=== PATIENT | female | born 1935 | race Caucasian/White ===

== ENCOUNTER 2017-11-28 13:25 | Emergency (ER) | payer MEDICARE, OTHER ==
[~2017-11-28] VITALS: Ht 154.9 cm; Wt 52.0 kg
[~2017-11-28 13:25] MED LIST: ASPI-611 PO; ATI0.5T PO; ATOR10TA PO; DOCU-28 PO; ERGO500041 PO; FLUT16SP2 BOTHNARES; GABA100C PO; LACT1CAP26 PO; MIRA50TA PO; MIRT15TA8 PO; Miscellaneous PO; PANT40TA4 PO; PRAV10TA39 PO; STORE MEDs IN PHARMACY MC; TRAM50TA2 PO
[2017-11-28 13:54] VITALS: BP 142/62
[2017-11-28 14:37] LABS: BASOPHILS % (AUTO) 0.5 % (0-1); EOSINOPHILS # (AUTO) 0.1 X10'3 (0-0.9); EOSINOPHILS % (AUTO) 1.2 % (0-6); HEMATOCRIT 42.4 % (35.0-45.0); HEMOGLOBIN 14.4 g/dl (12.0-16.0); LYMPHOCYTES # (AUTO) 1.4 X10'3 (1.1-4.8); LYMPHOCYTES % (AUTO) 19.5 % (21-51); MEAN CORPUSCULAR HEMOGLOBIN 29.9 PG (27.0-31.0); MEAN CORPUSCULAR HGB CONC 33.8 % (33.0-36.5); MEAN CORPUSCULAR VOLUME 88.3 FL (78-98); MEAN PLATELET VOLUME 8.3 FL (7.4-10.4); MONOCYTES # (AUTO) 0.4 X10'3 (0-0.9); MONOCYTES % (AUTO) 5.9 % (2-12); NEUTROPHILS # (AUTO) 5.3 X10'3 (1.8-7.7); NEUTROPHILS % (AUTO) 72.9 % (42-75); PLATELET COUNT 231 X10'3 (140-440); RED BLOOD COUNT 4.81 X10'6 (4.20-5.60); RED CELL DISTRIBUTION WIDTH 13.6 % (11.5-14.5); WHITE BLOOD COUNT 7.3 X10'3 (4.5-11.0)
[2017-11-28 14:47] LABS: PROTHROMBIN TIME 10.1 SECONDS (9.0-12.0)
[2017-11-28 14:53] LABS: ALANINE AMINOTRANSFERASE 19 U/L (12-78); ALBUMIN/GLOBULIN RATIO 1.2 (1.1-1.5); ALKALINE PHOSPHATASE 101 IU/L (46-116); ANION GAP 9 (8-16); ASPARTATE AMINO TRANSFERASE 16 U/L (10-37); BILIRUBIN,TOTAL 0.4 MG/DL (0.1-1.0); BLOOD UREA NITROGEN 18 MG/DL (7-18); CALCIUM 9.1 MG/DL (8.5-10.1); CHLORIDE 105 MMOL/L (99-107); CREATININE 1.06 MG/DL (0.40-0.90); GLUCOSE 130 MG/DL (70-104); POTASSIUM 3.9 MMOL/L (3.5-5.1); SODIUM 143 MMOL/L (135-145); TOTAL CARBON DIOXIDE 28.7 MMOL/L (24-32); TOTAL PROTEIN 7.3 G/DL (6.4-8.2); eGFR 50 ML/MIN
[2017-11-28 15:26] LABS: CLARITY,URINE CLOUDY (Clear); COLOR,URINE YELLOW (Yellow); GLUCOSE, URINE NEGATIVE (Neg); KETONES,URINE NEGATIVE (Neg); LEUKOCYTE ESTERASE ,URINE SMALL (Neg); NITRITES, URINE NEGATIVE (Neg); OCCULT BLOOD,URINE MODERATE (Neg); PH,URINE 5.5 (4.8-8.0); PROTEIN,URINE NEGATIVE (Neg); UROBILINOGEN,URINE 0.2 E.U/dL (0.2-1.0)
[2017-11-28 15:28] LABS: UA COLLECTION TYPE CLN CATCH MIDSTREAM
[2017-11-28 15:34] LABS: BACTERIA,URINE 3+ /HPF (Neg); RENAL CELLS, URINE FEW /HPF; SQUAMOUS EPITHELIAL CELL,UR FEW /LPF (FEW); TRANSITIONAL EPI CELLS,URINE FEW /HPF
[2017-11-28 15:35] LABS: RBC,URINE 0-2 /HPF (0-2); WBC CLUMPS,URINE FEW /HPF (NEGATIVE)
[2017-11-28 15:37] LABS: URINE AMPHETAMINE SCREEN NEGATIVE (Neg); URINE BARBITUATE SCREEN NEGATIVE (Neg); URINE BENZODIAZEPINES SCREEN NEGATIVE (Neg); URINE CANNABINOID SCREEN NEGATIVE (Neg); URINE COCAINE SCREEN NEGATIVE (Neg); URINE METHADONE SCREEN NEGATIVE (Neg); URINE OPIATE SCREEN NEGATIVE (Neg); URINE PHENCYCLIDINE SCREEN NEGATIVE (Neg)
== END 2017-11-28 15:58 | disposition home or self-care (01) ==
LOC: ER 13:26
DX: F03.90 Unspecified dementia, unspecified severity, without behavioral disturbance, psychotic disturbance, mood disturbance, and anxiety (principal); F41.9 Anxiety disorder, unspecified; F32.9 Major depressive disorder, single episode, unspecified; Z88.8 Allergy status to other drugs, medicaments and biological substances; Z79.82 Long term (current) use of aspirin; Z79.899 Other long term (current) drug therapy
CPT/HCPCS: 36415; 80053; 80305; 81001; 84443; 85025; 85610; 87077; 87088; 87186; 99284

== ENCOUNTER 2017-12-13 08:38 | Emergency (ER) | payer MEDICARE, OTHER ==
[~2017-12-13] VITALS: Ht 157.5 cm; Wt 50.0 kg
[2017-12-13 08:53] VITALS: BP 160/85
[2017-12-13 10:21] LABS: CLARITY,URINE Clear (Clear); COLOR,URINE Yellow (Yellow); GLUCOSE, URINE Negative (Neg); KETONES,URINE Negative (Neg); LEUKOCYTE ESTERASE ,URINE Negative (Neg); NITRITES, URINE Negative (Neg); OCCULT BLOOD,URINE Negative (Neg); PH,URINE 7.5 (4.8-8.0); PROTEIN,URINE Negative (Neg)
[2017-12-13 10:25] LABS: UA COLLECTION TYPE CLN CATCH MIDSTREAM
[2017-12-13 10:29] LABS: URINE AMPHETAMINE SCREEN NEGATIVE (Neg); URINE BARBITUATE SCREEN NEGATIVE (Neg); URINE BENZODIAZEPINES SCREEN NEGATIVE (Neg); URINE CANNABINOID SCREEN NEGATIVE (Neg); URINE COCAINE SCREEN NEGATIVE (Neg); URINE METHADONE SCREEN NEGATIVE (Neg); URINE OPIATE SCREEN NEGATIVE (Neg); URINE PHENCYCLIDINE SCREEN NEGATIVE (Neg)
[2017-12-13 10:48] LABS: BASOPHILS % (AUTO) 0.3 % (0-1); EOSINOPHILS % (AUTO) 0.7 % (0-6); HEMOGLOBIN 14.3 g/dl (12.0-16.0); LYMPHOCYTES # (AUTO) 1.2 X10'3 (1.1-4.8); LYMPHOCYTES % (AUTO) 18.2 % (21-51); MEAN CORPUSCULAR HEMOGLOBIN 30.5 PG (27.0-31.0); MEAN CORPUSCULAR HGB CONC 34.8 % (33.0-36.5); MEAN CORPUSCULAR VOLUME 87.5 FL (78-98); MEAN PLATELET VOLUME 7.5 FL (7.4-10.4); MONOCYTES # (AUTO) 0.3 X10'3 (0-0.9); MONOCYTES % (AUTO) 4.4 % (2-12); NEUTROPHILS # (AUTO) 5.1 X10'3 (1.8-7.7); NEUTROPHILS % (AUTO) 76.4 % (42-75); PLATELET COUNT 213 X10'3 (140-440); RED BLOOD COUNT 4.68 X10'6 (4.20-5.60); WHITE BLOOD COUNT 6.7 X10'3 (4.5-11.0)
[2017-12-13 11:11] LABS: ALANINE AMINOTRANSFERASE 20 U/L (12-78); ALBUMIN/GLOBULIN RATIO 1.3 (1.1-1.5); ALKALINE PHOSPHATASE 88 IU/L (46-116); ANION GAP 9 (8-16); ASPARTATE AMINO TRANSFERASE 13 U/L (10-37); BILIRUBIN,TOTAL 0.4 MG/DL (0.1-1.0); BLOOD UREA NITROGEN 12 MG/DL (7-18); BUN/CREATININE RATIO 13.3 (6.6-38.0); CALCIUM 9.3 MG/DL (8.5-10.1); CHLORIDE 106 MMOL/L (99-107); GLUCOSE 106 MG/DL (70-104); POTASSIUM 3.8 MMOL/L (3.5-5.1); SODIUM 144 MMOL/L (135-145); TOTAL CARBON DIOXIDE 28.6 MMOL/L (24-32); TOTAL PROTEIN 7.1 G/DL (6.4-8.2); eGFR 60 ML/MIN
[2017-12-13 11:17] LABS: ACETAMINOPHEN < 2.0 UG/ML (10-30); ETHANOL < 0.010 GM/DL (0.0-0.010)
[2017-12-13] MEDS ORDERED: EFF37.5XRC PO (15:34)
[2017-12-13] MEDS ORDERED: LORA0.5T PO (16:08)
[2017-12-13] MEDS ORDERED: TRAM50TA2 PO (16:13)
[2017-12-13] MEDS ORDERED: ATOR10TA87 PO (16:13)
[2017-12-13] MEDS ORDERED: MIRT15TA PO (16:13)
== END 2017-12-13 14:33 | disposition home or self-care (01) ==
LOC: ER 08:38
DX: F32.9 Major depressive disorder, single episode, unspecified (principal); F41.9 Anxiety disorder, unspecified; F03.90 Unspecified dementia, unspecified severity, without behavioral disturbance, psychotic disturbance, mood disturbance, and anxiety; Z79.82 Long term (current) use of aspirin; Z79.899 Other long term (current) drug therapy; Z88.8 Allergy status to other drugs, medicaments and biological substances
CPT/HCPCS: 36415; 80053; 80305; 80320; 80329; 81003; 84443; 85025; 99284

== ENCOUNTER 2017-12-13 12:30 | Inpatient (IN) | payer MEDICARE, OTHER ==
[~2017-12-13] VITALS: Ht 154.9 cm; Wt 52.9 kg
[2017-12-13] MEDS ORDERED: mag hydrox/Alum hydrox/simeth 30ml oral suspension PO PRN (14:50)
[2017-12-13] MEDS ORDERED: acetaminophen 325mg tablet PO PRN (14:50)
[2017-12-13] MEDS ORDERED: magnesium hydroxide 30ml (MOM) UD suspension PO PRN (14:50)
[2017-12-13 15:00] VITALS: BP 112/68
[2017-12-13] MEDS ORDERED: EFF37.5XRC PO (15:34)
[2017-12-13] MEDS ORDERED: LORA0.5T PO (16:08)
[2017-12-13] MEDS ORDERED: TRAM50TA2 PO (16:13)
[2017-12-13] MEDS ORDERED: MIRT15TA PO (16:13)
[2017-12-13] MEDS ORDERED: ATOR10TA87 PO (16:13)
[2017-12-13 19:25] VITALS: BP 120/71
[2017-12-13] MEDS: LORazepam 0.5 MG tablet PO PRN (20:05)
[2017-12-13] MEDS: traMADol 50MG tablet PO SCH (20:05)
[2017-12-13] MEDS: mirtazapine 15mg tablet PO SCH (20:19)
[2017-12-13] MEDS: atorvastatin 10mg tablet PO SCH (20:19)
[2017-12-14 08:00] VITALS: BP 128/81
[2017-12-14] MEDS ORDERED: MYRBETRIQ 50 MG PO SCH (08:00)
[2017-12-14] MEDS: aspirin 81mg tab.chew PO SCH (08:30)
[2017-12-14] MEDS: venlafaxine XR 37.5mg cap (Q24H) PO SCH (08:31)
[2017-12-14] MEDS: LORazepam 0.5 MG tablet PO PRN ×2 (08:33→20:16)
[2017-12-14] MEDS: docusate sod 100mg capsule PO SCH (08:33)
[2017-12-14] MEDS: traMADol 50MG tablet PO SCH ×2 (08:33→20:15)
[2017-12-14] MEDS: pantoprazole 40mg Tablet.DR PO SCH (08:33)
[2017-12-14 20:00] VITALS: BP 118/52
[2017-12-14] MEDS: mirtazapine 15mg tablet PO SCH (20:15)
[2017-12-14] MEDS: atorvastatin 10mg tablet PO SCH (20:15)
[2017-12-14 21:13] LABS: CLARITY,URINE CLEAR (Clear); COLOR,URINE YELLOW (Yellow); GLUCOSE, URINE NEGATIVE (Neg); KETONES,URINE NEGATIVE (Neg); LEUKOCYTE ESTERASE ,URINE NEGATIVE (Neg); NITRITES, URINE NEGATIVE (Neg); OCCULT BLOOD,URINE SMALL (Neg); PROTEIN,URINE NEGATIVE (Neg); UROBILINOGEN,URINE 0.2 E.U/dL (0.2-1.0)
[2017-12-14 21:16] LABS: UA COLLECTION TYPE NON-SPECIFIED
[2017-12-14 21:18] LABS: SQUAMOUS EPITHELIAL CELL,UR FEW /LPF (FEW); WBC,URINE 0-4 /HPF (0-4)
[2017-12-14 21:19] LABS: BACTERIA,URINE FEW /HPF (Neg); RBC,URINE 0-2 /HPF (0-2)
[2017-12-15] MEDS: MYRBETRIQ 25 MG PO SCH (07:43)
[2017-12-15] MEDS: venlafaxine XR 37.5mg cap (Q24H) PO SCH (07:43)
[2017-12-15] MEDS: pantoprazole 40mg Tablet.DR PO SCH (07:43)
[2017-12-15] MEDS: traMADol 50MG tablet PO SCH ×2 (07:47→18:55)
[2017-12-15] MEDS: aspirin 81mg tab.chew PO SCH (07:47)
[2017-12-15 08:00] VITALS: BP 130/74
[2017-12-15] MEDS: docusate sod 100mg capsule PO SCH (08:00)
[2017-12-15] MEDS ORDERED: docusate sod 100mg capsule PO ONE (08:20)
[2017-12-15] MEDS: LORazepam 0.5 MG tablet PO PRN ×2 (11:15→20:37)
[2017-12-15 19:00] VITALS: BP 107/52
[2017-12-15] MEDS: mirtazapine 15mg tablet PO SCH (20:37)
[2017-12-15] MEDS: atorvastatin 10mg tablet PO SCH (20:37)
[2017-12-16] MEDS: venlafaxine XR 37.5mg cap (Q24H) PO SCH (07:36)
[2017-12-16] MEDS: docusate sod 100mg capsule PO SCH (07:36)
[2017-12-16] MEDS: pantoprazole 40mg Tablet.DR PO SCH (07:36)
[2017-12-16] MEDS: MYRBETRIQ 25 MG PO SCH (07:36)
[2017-12-16] MEDS: aspirin 81mg tab.chew PO SCH (07:36)
[2017-12-16] MEDS: traMADol 50MG tablet PO SCH ×2 (07:37→19:17)
[2017-12-16 07:42] VITALS: BP 119/63
[2017-12-16] MEDS: LORazepam 0.5 MG tablet PO PRN ×2 (14:35→20:46)
[2017-12-16 19:20] VITALS: BP 128/62
[2017-12-16] MEDS: atorvastatin 10mg tablet PO SCH (20:46)
[2017-12-16] MEDS: mirtazapine 15mg tablet PO SCH (20:46)
[2017-12-17] MEDS: MYRBETRIQ 25 MG PO SCH (07:20)
[2017-12-17] MEDS: venlafaxine XR 37.5mg cap (Q24H) PO SCH (07:21)
[2017-12-17] MEDS: traMADol 50MG tablet PO SCH ×2 (07:21→20:09)
[2017-12-17] MEDS: pantoprazole 40mg Tablet.DR PO SCH (07:21)
[2017-12-17] MEDS: aspirin 81mg tab.chew PO SCH (07:21)
[2017-12-17] MEDS: docusate sod 100mg capsule PO SCH (07:22)
[2017-12-17 07:33] VITALS: BP 134/75
[2017-12-17] MEDS: LORazepam 0.5 MG tablet PO PRN ×2 (13:48→20:09)
[2017-12-17 20:00] VITALS: BP 134/67
[2017-12-17] MEDS: atorvastatin 10mg tablet PO SCH (20:08)
[2017-12-17] MEDS: mirtazapine 15mg tablet PO SCH (20:09)
[2017-12-18] MEDS: pantoprazole 40mg Tablet.DR PO SCH (07:38)
[2017-12-18 08:00] VITALS: BP 137/78
[2017-12-18] MEDS: venlafaxine XR 37.5mg cap (Q24H) PO SCH (08:13)
[2017-12-18] MEDS: docusate sod 100mg capsule PO SCH (08:13)
[2017-12-18] MEDS: MYRBETRIQ 25 MG PO SCH (08:13)
[2017-12-18] MEDS: traMADol 50MG tablet PO SCH (08:13)
[2017-12-18] MEDS: aspirin 81mg tab.chew PO SCH (08:13)
[2017-12-18] MEDS ORDERED: hydrOXYzine 10 MG tablet PO PRN (11:05)
[2017-12-18] MEDS: LORazepam 0.5 MG tablet PO PRN ×2 (15:41→20:53)
[2017-12-18] MEDS: traMADol 50MG tablet PO PRN (17:29)
[2017-12-18 19:38] VITALS: BP 117/76
[2017-12-18] MEDS: mirtazapine 15mg tablet PO SCH (20:53)
[2017-12-18] MEDS: atorvastatin 10mg tablet PO SCH (20:53)
[2017-12-19] MEDS: pantoprazole 40mg Tablet.DR PO SCH (07:26)
[2017-12-19 08:31] VITALS: BP 123/82
[2017-12-19] MEDS: docusate sod 100mg capsule PO SCH (08:35)
[2017-12-19] MEDS: traMADol 50MG tablet PO PRN ×2 (08:35→18:59)
[2017-12-19] MEDS: aspirin 81mg tab.chew PO SCH (08:35)
[2017-12-19] MEDS: MYRBETRIQ 25 MG PO SCH (08:36)
[2017-12-19] MEDS: venlafaxine XR 37.5mg cap (Q24H) PO SCH (08:36)
[2017-12-19 19:10] VITALS: BP 140/80
[2017-12-19] MEDS: atorvastatin 10mg tablet PO SCH (20:14)
[2017-12-19] MEDS: LORazepam 0.5 MG tablet PO PRN (20:15)
[2017-12-19] MEDS: mirtazapine 15mg tablet PO SCH (20:15)
[2017-12-19] MEDS: acetaminophen 325mg tablet PO PRN (23:52)
[2017-12-20] MEDS: pantoprazole 40mg Tablet.DR PO SCH (07:50)
[2017-12-20 07:51] VITALS: BP 137/84
[2017-12-20] MEDS: venlafaxine XR 37.5mg cap (Q24H) PO SCH (08:00)
[2017-12-20] MEDS: MYRBETRIQ 25 MG PO SCH (08:07)
[2017-12-20] MEDS: docusate sod 100mg capsule PO SCH (08:07)
[2017-12-20] MEDS: aspirin 81mg tab.chew PO SCH (08:08)
[2017-12-20] MEDS: traMADol 50MG tablet PO PRN ×2 (10:27→19:01)
[2017-12-20] MEDS: LORazepam 0.5 MG tablet PO PRN ×2 (11:24→20:51)
[2017-12-20 19:32] VITALS: BP 107/65
[2017-12-20] MEDS: mirtazapine 15mg tablet PO SCH (20:51)
[2017-12-20] MEDS: atorvastatin 10mg tablet PO SCH (20:51)
[2017-12-21 07:44] VITALS: BP 112/66
[2017-12-21] MEDS: docusate sod 100mg capsule PO SCH (07:55)
[2017-12-21] MEDS: pantoprazole 40mg Tablet.DR PO SCH (07:55)
[2017-12-21] MEDS: MYRBETRIQ 25 MG PO SCH (07:55)
[2017-12-21] MEDS: aspirin 81mg tab.chew PO SCH (07:55)
[2017-12-21] MEDS: traMADol 50MG tablet PO PRN ×2 (12:04→19:42)
[2017-12-21] MEDS: LORazepam 0.5 MG tablet PO PRN ×2 (13:52→20:45)
[2017-12-21 16:28] LABS: CLARITY,URINE CLEAR (Clear); COLOR,URINE YELLOW (Yellow); GLUCOSE, URINE NEGATIVE (Neg); KETONES,URINE NEGATIVE (Neg); LEUKOCYTE ESTERASE ,URINE NEGATIVE (Neg); NITRITES, URINE NEGATIVE (Neg); OCCULT BLOOD,URINE TRACE-INTACT (Neg); PROTEIN,URINE NEGATIVE (Neg); UROBILINOGEN,URINE 0.2 E.U/dL (0.2-1.0)
[2017-12-21 16:32] LABS: UA COLLECTION TYPE CLN CATCH MIDSTREAM
[2017-12-21 16:34] LABS: BACTERIA,URINE NONE SEEN /HPF (Neg); MUCUS STRANDS NONE SEEN /LPF (Neg); RBC,URINE 0-2 /HPF (0-2); SQUAMOUS EPITHELIAL CELL,UR NONE SEEN /LPF (FEW); WBC,URINE NONE SEEN /HPF (0-4)
[2017-12-21 20:00] VITALS: BP 133/85
[2017-12-21] MEDS: mirtazapine 15mg tablet PO SCH (20:44)
[2017-12-21] MEDS: atorvastatin 10mg tablet PO SCH (20:45)
[2017-12-21] MEDS: traZODone 50mg tablet PO PRN (22:30)
[2017-12-22 07:00] VITALS: BP 136/66
[2017-12-22] MEDS: pantoprazole 40mg Tablet.DR PO SCH (07:34)
[2017-12-22] MEDS: docusate sod 100mg capsule PO SCH (07:34)
[2017-12-22] MEDS: aspirin 81mg tab.chew PO SCH (07:35)
[2017-12-22] MEDS: traMADol 50MG tablet PO PRN ×2 (07:36→19:21)
[2017-12-22] MEDS: MYRBETRIQ 25 MG PO SCH (10:01)
[2017-12-22] MEDS: LORazepam 0.5 MG tablet PO PRN ×2 (11:44→20:49)
[2017-12-22 20:00] VITALS: BP 141/80
[2017-12-22] MEDS: atorvastatin 10mg tablet PO SCH (20:48)
[2017-12-22] MEDS: mirtazapine 15mg tablet PO SCH (20:48)
[2017-12-22] MEDS: traZODone 50mg tablet PO PRN (20:48)
[2017-12-23 07:00] VITALS: BP 134/70
[2017-12-23] MEDS: aspirin 81mg tab.chew PO SCH (07:57)
[2017-12-23] MEDS: docusate sod 100mg capsule PO SCH (07:57)
[2017-12-23] MEDS: MYRBETRIQ 25 MG PO SCH (07:58)
[2017-12-23] MEDS: pantoprazole 40mg Tablet.DR PO SCH (07:58)
[2017-12-23] MEDS: traZODone 50mg tablet PO SCH ×2 (13:15→20:07)
[2017-12-23] MEDS ORDERED: buPROPion 75mg tablet PO ONE (13:15)
[2017-12-23] MEDS: LORazepam 0.5 MG tablet PO PRN ×2 (13:17→20:24)
[2017-12-23] MEDS: acetaminophen 325mg tablet PO PRN (13:18)
[2017-12-23] MEDS: traMADol 50MG tablet PO PRN (16:29)
[2017-12-23 19:35] VITALS: BP 140/64
[2017-12-23] MEDS: atorvastatin 10mg tablet PO SCH (20:07)
[2017-12-23] MEDS: mirtazapine 15mg tablet PO SCH (20:08)
[2017-12-24 08:00] VITALS: BP 150/82
[2017-12-24] MEDS: MYRBETRIQ 25 MG PO SCH (08:31)
[2017-12-24] MEDS: aspirin 81mg tab.chew PO SCH (08:32)
[2017-12-24] MEDS: pantoprazole 40mg Tablet.DR PO SCH (08:32)
[2017-12-24] MEDS: buPROPion 75mg tablet PO SCH (08:32)
[2017-12-24] MEDS: docusate sod 100mg capsule PO SCH (08:32)
[2017-12-24] MEDS: traMADol 50MG tablet PO PRN ×2 (09:31→20:51)
[2017-12-24] MEDS: LORazepam 0.5 MG tablet PO PRN ×2 (11:30→20:51)
[2017-12-24 13:31] VITALS: BP 150/82
[2017-12-24 19:05] VITALS: BP 149/71
[2017-12-24] MEDS: atorvastatin 10mg tablet PO SCH (20:42)
[2017-12-24] MEDS: traZODone 50mg tablet PO SCH (20:42)
[2017-12-24] MEDS: mirtazapine 15mg tablet PO SCH (20:42)
[2017-12-25] MEDS: buPROPion 75mg tablet PO SCH (08:02)
[2017-12-25] MEDS: docusate sod 100mg capsule PO SCH (08:02)
[2017-12-25] MEDS: MYRBETRIQ 25 MG PO SCH (08:02)
[2017-12-25] MEDS: pantoprazole 40mg Tablet.DR PO SCH (08:02)
[2017-12-25] MEDS: aspirin 81mg tab.chew PO SCH (08:02)
[2017-12-25] MEDS: traMADol 50MG tablet PO PRN ×2 (08:59→17:15)
[2017-12-25 09:00] VITALS: BP 130/73
[2017-12-25] MEDS: LORazepam 0.5 MG tablet PO PRN ×2 (09:00→21:24)
[2017-12-25 19:33] VITALS: BP 121/56
[2017-12-25] MEDS: traZODone 50mg tablet PO SCH (21:22)
[2017-12-25] MEDS: acetaminophen 325mg tablet PO PRN (21:23)
[2017-12-25] MEDS: atorvastatin 10mg tablet PO SCH (21:23)
[2017-12-25] MEDS: mirtazapine 15mg tablet PO SCH (21:24)
[2017-12-26 08:00] VITALS: BP 150/78
[2017-12-26] MEDS: pantoprazole 40mg Tablet.DR PO SCH (08:06)
[2017-12-26] MEDS: buPROPion 75mg tablet PO SCH (08:06)
[2017-12-26] MEDS: MYRBETRIQ 25 MG PO SCH (08:06)
[2017-12-26] MEDS: aspirin 81mg tab.chew PO SCH (08:06)
[2017-12-26] MEDS: docusate sod 100mg capsule PO SCH (08:06)
[2017-12-26] MEDS: traMADol 50MG tablet PO PRN ×2 (08:32→17:48)
[2017-12-26] MEDS: LORazepam 0.5 MG tablet PO PRN ×2 (10:27→20:57)
[2017-12-26 19:26] VITALS: BP 130/49
[2017-12-26] MEDS: mirtazapine 15mg tablet PO SCH (20:56)
[2017-12-26] MEDS: traZODone 50mg tablet PO SCH (20:56)
[2017-12-26] MEDS: atorvastatin 10mg tablet PO SCH (20:57)
[2017-12-27 07:13] VITALS: BP 176/90
[2017-12-27] MEDS: docusate sod 100mg capsule PO SCH (08:10)
[2017-12-27] MEDS: MYRBETRIQ 25 MG PO SCH (08:10)
[2017-12-27] MEDS: buPROPion 75mg tablet PO SCH (08:10)
[2017-12-27] MEDS: pantoprazole 40mg Tablet.DR PO SCH (08:11)
[2017-12-27] MEDS: traMADol 50MG tablet PO PRN (08:11)
[2017-12-27] MEDS: aspirin 81mg tab.chew PO SCH (08:11)
[2017-12-27] MEDS ORDERED: TRAZ-143 PO (09:41)
[2017-12-27] MEDS ORDERED: MIRT30TA8 PO (09:41)
[2017-12-27] MEDS ORDERED: ATI0.5T PO (09:41)
[2017-12-27] MEDS ORDERED: BUPR75TA12 PO (09:41)
[2017-12-27] MEDS ORDERED: TRAM50TA2 PO (09:41)
[2017-12-27] MEDS: LORazepam 0.5 MG tablet PO PRN (11:54)
== END 2017-12-27 12:45 | disposition home or self-care (01) | DRG 885 ==
LOC: ADULT MH 12:30
PROVIDERS: ADMIT Psychiatry & Neurology Psychiatry; ATTEND Psychiatry & Neurology Psychiatry
DX: F33.2 Major depressive disorder, recurrent severe without psychotic features (principal); F03.90 Unspecified dementia, unspecified severity, without behavioral disturbance, psychotic disturbance, mood disturbance, and anxiety; R45.851 Suicidal ideations; F13.20 Sedative, hypnotic or anxiolytic dependence, uncomplicated; N18.9 Chronic kidney disease, unspecified; F41.9 Anxiety disorder, unspecified; N30.20 Other chronic cystitis without hematuria; S61.412A Laceration without foreign body of left hand, initial encounter; M19.90 Unspecified osteoarthritis, unspecified site; Z88.8 Allergy status to other drugs, medicaments and biological substances; Z79.82 Long term (current) use of aspirin; Z79.899 Other long term (current) drug therapy
CPT/HCPCS: 81001; 87070; 99285; A6209; A6253; A6255; A6446

== ENCOUNTER 2022-03-30 11:57 | Emergency (ER) | payer MEDICARE, OTHER ==
[~2022-03-30] VITALS: Ht 154.9 cm; Wt 60.5 kg
[~2022-03-30 11:57] MED LIST changes: -ATOR10TA PO; +ATOR10TA87 PO; +BUPR-297 PO; -FLUT16SP2 BOTHNARES; -GABA100C PO; -LACT1CAP26 PO; -MIRA50TA PO; +MIRT-88 PO; -MIRT15TA8 PO; -Miscellaneous PO; -PANT40TA4 PO; +PANT40TA54 PO; -PRAV10TA39 PO; -STORE MEDs IN PHARMACY MC; +TRAZ-251 PO
[2022-03-30 12:10] VITALS: BP 158/74
== END 2022-03-30 15:41 | disposition left against medical advice (07) ==
LOC: ER 12:00
DX: R42 Dizziness and giddiness (principal); Z53.21 Procedure and treatment not carried out due to patient leaving prior to being seen by health care provider
CPT/HCPCS: 93005

== ENCOUNTER 2022-08-15 14:51 | Emergency (ER) | payer MEDICARE, OTHER, MEDICAID ==
[~2022-08-15] VITALS: Ht 154.9 cm; Wt 54.5 kg
[2022-08-15 14:58] VITALS: BP 140/74
[2022-08-15 15:52] LABS: BASOPHILS # (AUTO) 0.1 X10'3 (0-0.2); BASOPHILS % (AUTO) 0.9 % (0-1); EOSINOPHILS # (AUTO) 0.3 X10'3 (0-0.9); EOSINOPHILS % (AUTO) 3.9 % (0-6); HEMATOCRIT 37.9 % (35.0-45.0); HEMOGLOBIN 12.6 g/dl (12.0-16.0); LYMPHOCYTES # (AUTO) 1.6 X10'3 (1.1-4.8); MEAN CORPUSCULAR HEMOGLOBIN 29.5 PG (27.0-31.0); MEAN CORPUSCULAR HGB CONC 33.4 g/dL (33.0-36.5); MEAN CORPUSCULAR VOLUME 88.3 FL (78-98); MEAN PLATELET VOLUME 7.1 FL (7.4-10.4); MONOCYTES # (AUTO) 0.7 X10'3 (0-0.9); MONOCYTES % (AUTO) 10.5 % (2-12); NEUTROPHILS # (AUTO) 4.1 X10'3 (1.8-7.7); NEUTROPHILS % (AUTO) 60.7 % (42-75); PLATELET COUNT 322 X10'3 (140-440); RED BLOOD COUNT 4.29 X10'6 (4.20-5.60); RED CELL DISTRIBUTION WIDTH 14.6 % (11.5-14.5); WHITE BLOOD COUNT 6.8 X10'3 (4.5-11.0)
[2022-08-15 16:05] LABS: ALANINE AMINOTRANSFERASE 19 U/L (12-78); ALBUMIN 3.7 G/DL (3.4-5.0); ALBUMIN/GLOBULIN RATIO 1.1 (1.1-1.5); ALKALINE PHOSPHATASE 103 IU/L (46-116); ANION GAP 9 (8-16); ASPARTATE AMINO TRANSFERASE 18 U/L (10-37); BILIRUBIN,TOTAL 0.2 MG/DL (0.1-1.0); BLOOD UREA NITROGEN 13 MG/DL (7-18); BUN/CREATININE RATIO 14.3 (6.6-38.0); CALCIUM 8.5 MG/DL (8.5-10.1); CHLORIDE 101 MMOL/L (99-107); CREATININE 0.91 MG/DL (0.40-0.90); GLUCOSE 156 MG/DL (70-104); LIPASE 122 U/L (73-393); POTASSIUM 3.4 MMOL/L (3.5-5.1); SODIUM 137 MMOL/L (135-145); TOTAL CARBON DIOXIDE 27.3 MMOL/L (24-32); eGFR 59 ML/MIN
[2022-08-15 16:20] LABS: CLARITY,URINE SLIGHTLY CLOUDY (Clear); COLOR,URINE YELLOW (Yellow); GLUCOSE, URINE NEGATIVE (Neg); KETONES,URINE NEGATIVE (Neg); LEUKOCYTE ESTERASE ,URINE NEGATIVE (Neg); NITRITES, URINE NEGATIVE (Neg); OCCULT BLOOD,URINE NEGATIVE (Neg); PROTEIN,URINE NEGATIVE (Neg); UROBILINOGEN,URINE 0.2 E.U/dL (0.2-1.0)
[2022-08-15 16:23] LABS: UA COLLECTION TYPE CLN CATCH MIDSTREAM
[2022-08-15 16:25] LABS: BACTERIA,URINE FEW /HPF (Neg); RBC,URINE 0-2 /HPF (0-2); SQUAMOUS EPITHELIAL CELL,UR FEW /LPF (FEW); WBC,URINE 0-4 /HPF (0-4)
[2022-08-15] MEDS ORDERED: LORazepam 1 MG tablet PO ONE (17:05)
[2022-08-15] MEDS ORDERED: LORA-269 PO ×2 (18:05→18:07)
== END 2022-08-15 18:28 | disposition home or self-care (01) ==
LOC: ER 14:52
DX: F19.939 Other psychoactive substance use, unspecified with withdrawal, unspecified (principal); Z88.8 Allergy status to other drugs, medicaments and biological substances; R41.82 Altered mental status, unspecified
CPT/HCPCS: 36415; 70450; 71045; 80053; 81001; 83690; 85025; 93005; 99285

== ENCOUNTER 2023-12-06 15:06 | Emergency (ER) | payer MEDICARE, OTHER, MEDICAID ==
[~2023-12-06] VITALS: Ht 157.5 cm; Wt 60.7 kg
[~2023-12-06 15:06] MED LIST changes: +LORA-269 PO
[2023-12-06] MEDS ORDERED: PRED20TA PO (16:28)
[2023-12-06 16:43] VITALS: BP 176/76; PULSE 76; RESP 16; TEMP 98; O2SAT 96
== END 2023-12-06 16:45 | disposition home or self-care (01) ==
LOC: ER 15:07
DX: G50.0 Trigeminal neuralgia (principal); F41.9 Anxiety disorder, unspecified; F32.A Depression, unspecified
CPT/HCPCS: 99283

== ENCOUNTER 2024-01-06 07:26 | Emergency (ER) | payer MEDICARE, OTHER, MEDICAID ==
[~2024-01-06] VITALS: Ht 154.9 cm; Wt 61.4 kg
[~2024-01-06 07:26] MED LIST changes: +PRED20TA PO
[2024-01-06 07:31] VITALS: PULSE 85; TEMP 97.2
[2024-01-06 09:24] VITALS: BP 170/97; RESP 20; O2SAT 96
== END 2024-01-06 09:25 | disposition home or self-care (01) ==
LOC: ER 07:27
DX: J18.9 Pneumonia, unspecified organism (principal); Q40.1 Congenital hiatus hernia; F31.9 Bipolar disorder, unspecified; Z88.8 Allergy status to other drugs, medicaments and biological substances; Z79.899 Other long term (current) drug therapy
CPT/HCPCS: 71045; 99284

== ENCOUNTER 2024-10-02 17:59 | Emergency (ER) | payer MEDICARE, MEDICAID ==
[~2024-10-02] VITALS: Ht 154.9 cm; Wt 54.5 kg
[~2024-10-02 17:59] MED LIST changes: -PRED20TA PO
[2024-10-02 18:07] VITALS: BP 130/64; PULSE 83; RESP 18; TEMP 97.4; O2SAT 94
== END 2024-10-02 21:33 | disposition left against medical advice (07) ==
LOC: ER 18:00
DX: R51.9 Headache, unspecified (principal); F03.90 Unspecified dementia, unspecified severity, without behavioral disturbance, psychotic disturbance, mood disturbance, and anxiety; Z53.21 Procedure and treatment not carried out due to patient leaving prior to being seen by health care provider; Z88.8 Allergy status to other drugs, medicaments and biological substances